=== PATIENT | female | born 1955 | race Hispanic/Latino ===

== ENCOUNTER 2017-06-25 12:35 | Outpatient (CLI) | payer BC ==
[2017-06-25 12:55] LABS: Hemoglobin 12.8 gm/dl (10.1-14.3); Mean Corpuscular HGB Conc 34 % (30-34); Mean Corpuscular Hemoglobin 28 pg (28-32); Mean Corpuscular Volume 83 fl (79-97); Platelet Count 376 K/mm3 (140-440); Red Blood Count 4.55 M/mm3 (3.65-5.03); Red Cell Distribution Width 13.9 % (13.2-15.2)
[2017-06-25 13:17] LABS: Erythrocyte Sedimentation Rate 23 mm/Hr (0-20)
[2017-06-25 13:19] LABS: Alanine Aminotransferase 15 units/L (7-56); Albumin 3.8 g/dL (3.9-5); BUN/Creatinine Ratio 17; Blood Urea Nitrogen 12 mg/dL (7-17); Calcium 8.7 mg/dL (8.4-10.2); Hemolysis Index 5
[2017-06-25 13:27] LABS: Free T4 (Free Thyroxine) 1.04 ng/dL (0.76-1.46)
[2017-06-28 20:52] LABS: ANA Screen, IFA Negative (Negative)
== END 2017-06-25 12:36 | disposition home or self-care (01) ==
LOC: LAB 12:35
PROVIDERS: ATTEND Specialist
DX: G25.5 Other chorea (principal)
CPT/HCPCS: 36415; 80053; 82390; 84439; 84443; 85027; 85652; 86038